=== PATIENT | female | born 2000 | race Caucasian/White ===

== ENCOUNTER 2023-04-20 08:47 | Outpatient (REF) | payer OTHER, MEDICAID, SELFPAY ==
--- NOTE | ~2023-04-20 | US_ITS ---
EXAMINATION: US PELVIS CLINICAL INFORMATION: Amenorrhea. Last menstrual period October 2022. COMPARISON: None available. TECHNIQUE: Ultrasound of the pelvis is performed using both transabdominal and transvaginal transducers along with Doppler. Transvaginal imaging is performed due to inadequate visualization transabdominally. FINDINGS: The uterus is heterogeneous and measures 6.2 x 2.6 x 3.2 cm. No discrete fibroids are appreciated. Endometrial thickness is 4 mm. Small amount of free fluid in the pelvis. Right ovary measures 2.2 x 3.0 x 2.2 cm, volume 8.5 mL. Left ovary measures 2.6 x 2.8 x 2.2 cm, volume 7.0 mL. Bilateral ovaries are unremarkable. US/US pelvic and transvaginal IMPRESSION: 1. No discrete fibroids. Endometrial thickness is 4 mm. 2. Unremarkable bilateral ovaries. 3. Small amount of free fluid in the cul-de-sac.
== END 2023-04-20 08:48 | disposition home or self-care (01) ==
LOC: HO.UMASIMG 08:47
PROVIDERS: Visit Provider Nurse Practitioner Women's Health
DX: N92.6 Irregular menstruation, unspecified (principal)
CPT/HCPCS: 76830; 76856